=== PATIENT | female | born 1990 | race Caucasian/White ===

== ENCOUNTER → 2018-11-24 | Outpatient (CLI) | payer OTHER ==
--- NOTE | 2018-11-24 16:03 | Diagnostic Imaging Report ---
Radiographs of the right wrist - 3 views HISTORY: Pain COMPARISON: None available. FINDINGS: Bones: No acute displaced fracture. Osseous alignment is within normal limits. Joints: Minimal scattered degenerative change. No osseous erosion Soft tissues: The soft tissues appear unremarkable. IMPRESSION: Minimal scattered degenerative change. No osseous erosion Signed by: Dr. Andrzej Otto M.D. on 11/24/2018 3:59 PM
--- NOTE | 2018-11-24 16:04 | Diagnostic Imaging Report ---
Radiographs of the right and left hand HISTORY: Pain COMPARISON: None available. FINDINGS: Bones: No acute displaced fracture. Osseous alignment is within normal limits. Joints: Scattered degenerative change. No osseous erosion. Soft tissues: The soft tissues appear unremarkable. IMPRESSION: Scattered degenerative change. No osseous erosion. Signed by: Dr. Andrzej Otto M.D. on 11/24/2018 4:01 PM
--- NOTE | 2018-11-24 16:04 | Diagnostic Imaging Report ---
Radiographs of the left foot and radiographs of the right foot - 3 views each foot HISTORY: Pain COMPARISON: None available. FINDINGS: Bones: No acute displaced fracture. Osseous alignment is within normal limits. Joints: Scattered degenerative change. No osseous erosion. Soft tissues: The soft tissues appear unremarkable. IMPRESSION: Scattered degenerative change. No osseous erosion. Signed by: Dr. Andrzej Otto M.D. on 11/24/2018 4:00 PM
== END ==
LOC: RAD 14:43
PROVIDERS: ATTEND Internal Medicine Rheumatology
DX: M25.532 Pain in left wrist (principal); M25.531 Pain in right wrist; M79.642 Pain in left hand; M79.641 Pain in right hand; M79.672 Pain in left foot; M79.671 Pain in right foot; M25.632 Stiffness of left wrist, not elsewhere classified; M25.631 Stiffness of right wrist, not elsewhere classified; M25.642 Stiffness of left hand, not elsewhere classified; M25.641 Stiffness of right hand, not elsewhere classified; R21 Rash and other nonspecific skin eruption; M35.00 Sjogren syndrome, unspecified; R53.83 Other fatigue